=== PATIENT | male | born 2000 | race Caucasian/White ===

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

== ENCOUNTER 2019-09-22 01:00 | Emergency (ER) | payer OTHER ==
[~2019-09-22] VITALS: Ht 182.9 cm; Wt 88.0 kg
[2019-09-22 01:00] VITALS: BP 138/82
== END 2019-09-22 02:07 | disposition home or self-care (01) ==
LOC: M ED 01:00
DX: S81.812A Laceration without foreign body, left lower leg, initial encounter (principal); W26.8XXA Contact with other sharp object(s), not elsewhere classified, initial encounter; Y92.019 Unspecified place in single-family (private) house as the place of occurrence of the external cause; F90.9 Attention-deficit hyperactivity disorder, unspecified type; Z79.899 Other long term (current) drug therapy

== ENCOUNTER → 2020-06-15 | Outpatient (REF) | payer OTHER ==
[2020-06-15 17:12] LABS: HEMATOCRIT 45.9 % (42.0-52.0); HEMOGLOBIN 15.2 g/dl (13.5-17.5); MEAN CORPUSCULAR HEMOGLOBIN 29.7 pg (27.0-33.0); MEAN CORPUSCULAR HGB CONC 33.1 g/dl (32.0-36.5); MEAN CORPUSCULAR VOLUME 89.6 fl (80.0-96.0); PLATELET COUNT, AUTOMATED 218 10^3/uL (150-450); RED BLOOD COUNT 5.12 10^6/uL (4.30-6.10); WHITE BLOOD COUNT 6.8 10^3/uL (4.0-10.0)
[2020-06-15 17:48] LABS: ALBUMIN 4.4 GM/DL (3.2-5.2); ALT/SGPT 14 U/L (12-78); BILIRUBIN,TOTAL 0.4 MG/DL (0.2-1.0); BLOOD UREA NITROGEN 19 MG/DL (7-18); CALCIUM LEVEL 8.9 MG/DL (8.5-10.1); CARBON DIOXIDE LEVEL 25 MEQ/L (21-32); CHLORIDE LEVEL 108 MEQ/L (98-107); CHOLESTEROL LEVEL 158 MG/DL (<200); CHOLESTEROL RISK RATIO 2.771 (<5); CREATININE FOR GFR 1.05 MG/DL (0.70-1.30); FREE T4 1.13 NG/DL (0.78-1.33); GLUCOSE, FASTING 53 MG/DL (70-100); HDL CHOLESTEROL 57 MG/DL (>40); LDL CHOLESTEROL 73 MG/DL (<100); NON-HDL-C 101 MG/DL; SODIUM LEVEL 139 MEQ/L (136-145); TOTAL PROTEIN 7.3 GM/DL (6.4-8.2); TRIGLYCERIDES LEVEL 139 MG/DL (<150)
== END ==
LOC: M SFHCADAM 14:40
PROVIDERS: ATTEND Physician Assistant
DX: F90.1 Attention-deficit hyperactivity disorder, predominantly hyperactive type (principal)

== ENCOUNTER 2021-09-16 19:04 | Emergency (ER) | payer OTHER ==
[~2021-09-16] VITALS: Ht 182.9 cm; Wt 90.9 kg
[2021-09-16 21:30] VITALS: BP 140/67
== END 2021-09-16 21:33 | disposition home or self-care (01) ==
LOC: M ED 19:04
DX: S93.401A Sprain of unspecified ligament of right ankle, initial encounter (principal); W10.8XXA Fall (on) (from) other stairs and steps, initial encounter; F90.9 Attention-deficit hyperactivity disorder, unspecified type; F17.200 Nicotine dependence, unspecified, uncomplicated; Y92.9 Unspecified place or not applicable; Y93.9 Activity, unspecified; Y99.9 Unspecified external cause status

== ENCOUNTER 2023-07-30 18:27 | Emergency (ER) | payer OTHER ==
[~2023-07-30] VITALS: Ht 188 cm; Wt 97.0 kg
[2023-07-30 18:28] VITALS: BP 139/87; TEMP 98.4; O2SAT 96
[2023-07-30] MEDS ORDERED: OFLO5DRO (18:31)
[2023-07-30 20:39] LABS: RSV AMPLIFICATION NEGATIVE (NEGATIVE)
== END 2023-07-30 20:50 | disposition home or self-care (01) ==
LOC: M ED 18:27
DX: J02.9 Acute pharyngitis, unspecified (principal); Z79.899 Other long term (current) drug therapy

== ENCOUNTER 2023-10-21 21:13 | Emergency (ER) | payer OTHER ==
[~2023-10-21] VITALS: Ht 188 cm; Wt 100.6 kg
[~2023-10-21 21:13] MED LIST changes: +OFLO5DRO
[2023-10-21 21:14] VITALS: BP 132/77; TEMP 97.8; O2SAT 97
== END 2023-10-21 21:14 | disposition left against medical advice (07) ==
LOC: M ED 21:13
DX: Z53.21 Procedure and treatment not carried out due to patient leaving prior to being seen by health care provider (principal)

== ENCOUNTER 2023-12-11 22:03 | Emergency (ER) | payer OTHER ==
[~2023-12-11] VITALS: Ht 185.4 cm; Wt 94.2 kg
[2023-12-12] MEDS: KETOROLAC 60MG 2ML VIAL IM ONE (00:58)
[2023-12-12 04:11] VITALS: BP 105/61; TEMP 97.6; O2SAT 98
== END 2023-12-12 04:13 | disposition home or self-care (01) ==
LOC: M ED 22:03
DX: S06.0X0A Concussion without loss of consciousness, initial encounter (principal); S01.512A Laceration without foreign body of oral cavity, initial encounter; Y04.8XXA Assault by other bodily force, initial encounter; F17.200 Nicotine dependence, unspecified, uncomplicated; F12.10 Cannabis abuse, uncomplicated; F10.10 Alcohol abuse, uncomplicated; Y92.410 Unspecified street and highway as the place of occurrence of the external cause; Y93.89 Activity, other specified; Y99.9 Unspecified external cause status
CPT/HCPCS: 70450; 70486; 72125; 99284; J1885

== ENCOUNTER 2024-01-17 22:01 | Emergency (ER) | payer OTHER ==
[~2024-01-17] VITALS: Ht 188 cm; Wt 92.2 kg
[2024-01-17 22:03] VITALS: BP 127/76; TEMP 98.2; O2SAT 98
== END 2024-01-18 00:21 | disposition left against medical advice (07) ==
LOC: M ED 22:01
DX: Z53.21 Procedure and treatment not carried out due to patient leaving prior to being seen by health care provider (principal)

== ENCOUNTER 2024-02-29 17:50 | Emergency (ER) | payer OTHER ==
[~2024-02-29] VITALS: Ht 188 cm; Wt 89.0 kg
[2024-02-29 17:51] VITALS: BP 146/80; TEMP 96.5; O2SAT 96
== END 2024-02-29 20:14 | disposition home or self-care (01) ==
LOC: M ED 17:50
DX: S61.216A Laceration without foreign body of right little finger without damage to nail, initial encounter (principal); W26.8XXA Contact with other sharp object(s), not elsewhere classified, initial encounter; F90.9 Attention-deficit hyperactivity disorder, unspecified type; Y92.009 Unspecified place in unspecified non-institutional (private) residence as the place of occurrence of the external cause; Y93.89 Activity, other specified; Y99.9 Unspecified external cause status

== ENCOUNTER 2024-03-18 19:24 | Emergency (ER) | payer OTHER ==
[~2024-03-18] VITALS: Ht 185.4 cm; Wt 91.5 kg
[2024-03-18 19:25] VITALS: BP 133/78; TEMP 97.8; O2SAT 97
[2024-03-18] MEDS ORDERED: CLEO300C2 PO (21:13)
[2024-03-18] MEDS ORDERED: NAPR-837 PO (21:13)
[2024-03-18] MEDS: CLINDAMYCIN 150MG CAPSULE PO ONE (21:20)
[2024-03-18] MEDS: NAPROXEN 250 MG TAB PO ONE (21:20)
== END 2024-03-18 21:30 | disposition home or self-care (01) ==
LOC: M ED 19:24
DX: K04.7 Periapical abscess without sinus (principal); F17.200 Nicotine dependence, unspecified, uncomplicated; Z79.2 Long term (current) use of antibiotics; Z79.1 Long term (current) use of non-steroidal anti-inflammatories (NSAID)

== ENCOUNTER → 2024-04-20 | Outpatient (REF) | payer OTHER ==
[~2024-04-20] MED LIST changes: +CLEO300C2 PO; +NAPR-837 PO
== END ==
LOC: M LAB REF 16:10
PROVIDERS: ATTEND Physician Assistant
DX: B34.9 Viral infection, unspecified (principal)

== ENCOUNTER 2024-09-21 04:23 | Emergency (ER) | payer OTHER, SELFPAY ==
[~2024-09-21] VITALS: Ht 185.4 cm; Wt 104.4 kg
[2024-09-21 04:28] VITALS: TEMP 99.2
[2024-09-21] MEDS: ALBUTEROL SULFATE 2.5MG/0.5ML INH CONCENTRATE NEB SOLN NEB ONE (08:23)
[2024-09-21] MEDS ORDERED: PRED20TA PO (08:53)
[2024-09-21] MEDS ORDERED: BENZ200C70 PO (08:53)
[2024-09-21] MEDS ORDERED: VENTAER INH (08:53)
[2024-09-21 09:02] VITALS: BP 137/79; O2SAT 96
== END 2024-09-21 09:08 | disposition home or self-care (01) ==
LOC: M ED 04:23
DX: J20.9 Acute bronchitis, unspecified (principal); B34.2 Coronavirus infection, unspecified; F90.9 Attention-deficit hyperactivity disorder, unspecified type; F17.200 Nicotine dependence, unspecified, uncomplicated; Z79.52 Long term (current) use of systemic steroids; Z79.899 Other long term (current) drug therapy

== ENCOUNTER 2024-11-06 17:35 | Emergency (ER) | payer SELFPAY ==
[~2024-11-06 17:35] MED LIST changes: +BENZ200C70 PO; +PRED20TA PO; +VENTAER INH
[2024-11-06 18:39] LABS: BASO % 0.4 % (0.0-1.0); EOS # 0.1 10^3/uL (0.0-0.5); EOS % 1.4 % (0.0-3.0); HEMOGLOBIN 14.9 g/dl (13.5-17.5); LYMPH # 1.2 10^3/uL (1.5-5.0); LYMPH % 15.9 % (24.0-44.0); MEAN CORPUSCULAR HEMOGLOBIN 30.3 pg (27.0-33.0); MEAN CORPUSCULAR HGB CONC 34.7 g/dl (32.0-36.5); MEAN CORPUSCULAR VOLUME 87.4 fl (80.0-96.0); MONO # 0.6 10^3/uL (0.0-0.8); MONO % 8.4 % (2.0-8.0); NEUTROPHILS # 5.3 10^3/uL (1.5-8.5); NEUTROPHILS % 73.6 % (36.0-66.0); PLATELET COUNT, AUTOMATED 160 10^3/uL (150-450); RED BLOOD COUNT 4.92 10^6/uL (4.30-6.10); WHITE BLOOD COUNT 7.3 10^3/uL (4.0-10.0)
[2024-11-06 19:01] LABS: LIPASE 31 U/L (12-53)
[2024-11-06 19:03] LABS: ALBUMIN 4.4 G/DL (3.2-5.2); ALKALINE PHOSPHATASE 82 U/L (40-129); ALT/SGPT 21 U/L (7.0-40); AST/SGOT 25 U/L (<34); BILIRUBIN,DIRECT 0.2 MG/DL (<0.4); BILIRUBIN,TOTAL 0.6 MG/DL (0.3-1.2); BLOOD UREA NITROGEN 16 MG/DL (9-23); CALCIUM LEVEL 8.8 MG/DL (8.5-10.1); CARBON DIOXIDE LEVEL 25 MMOL/L (20-31); CHLORIDE LEVEL 101 MMOL/L (98-107); CREATININE FOR GFR 0.85 MG/DL (0.70-1.30); GLOMERULAR FILTRATION RATE > 90.0 (>60); GLUCOSE, FASTING 88 MG/DL (60-100); POTASSIUM SERUM 3.6 MMOL/L (3.5-5.1); SODIUM LEVEL 137 MMOL/L (136-145); TOTAL PROTEIN 7.1 G/DL (5.7-8.2)
[2024-11-06] MEDS: ACETAMINOPHEN 500 MG TAB PO ONE (19:03)
[2024-11-06] MEDS ORDERED: CETI10CH PO (19:47)
[2024-11-06 20:00] VITALS: BP 152/63; TEMP 100.6; O2SAT 96
[2024-11-06] MEDS: IBUPROFEN 600MG TAB PO ONE (20:07)
== END 2024-11-06 20:12 | disposition home or self-care (01) ==
LOC: M ED 17:35
DX: B34.1 Enterovirus infection, unspecified (principal); F90.9 Attention-deficit hyperactivity disorder, unspecified type; F17.200 Nicotine dependence, unspecified, uncomplicated; Z79.899 Other long term (current) drug therapy